=== PATIENT | female | born 1930 | race Two or more races ===

== ENCOUNTER 2019-02-11 19:37 | Inpatient (IN) | payer MEDICARE, MEDICAID ==
[~2019-02-11] VITALS: Ht 154.9 cm; Wt 86.2 kg
--- NOTE | 2019-02-11 19:46 | NUR ---
GINA FROM HOME FOR MEDICAL CLEARANCE, PT HAD A GLF AND HAS MINOR L KNEE PAIN. PT ON A HOLD; PT AAOX2, -SOB, NAD NOTED, VSS ,PENDING MD FRANCIS
[2019-02-11 20:01] LABS: BASOPHILS # (AUTO) 0.1 /CMM (0.0-0.2); BASOPHILS % (AUTO) 1.3 % (0.0-2.0); EOSINOPHILS % (AUTO) 1.2 % (0.0-6.0); HEMATOCRIT 45 % (33-45); LYMPHOCYTES # (AUTO) 2.2 /CMM (0.8-4.8); LYMPHOCYTES % (AUTO) 28.9 % (20.0-44.0); MEAN CORPUSCULAR HGB CONC 34 g/dl (31.0-36.0); MEAN CORPUSCULAR VOLUME 89 fL (82-100); MONOCYTES # (AUTO) 0.8 /CMM (0.1-1.30); MONOCYTES % (AUTO) 10.5 % (2.0-12.0); NEUTROPHILS # (AUTO) 4.4 /CMM (1.8-8.9); NEUTROPHILS % (AUTO) 58.1 % (43.0-81.0); PLATELET COUNT (AUTO) 150 /CMM (150-450); WHITE BLOOD COUNT (AUTO) 7.6 K/uL (4.3-11.0)
[2019-02-11 20:12] LABS: ALANINE AMINOTRANSFERASE 22 U/L (12-78); ALBUMIN 3.8 g/dL (3.4-5.0); ALCOHOL, BLOOD < 3 mg/dL (0-0); ALKALINE PHOSPHATASE 142 U/L (46-116); ASPARTATE AMINOTRANSFERASE 23 U/L (15-37); BILIRUBIN,DIRECT 0.2 mg/dL (0.0-0.2); BILIRUBIN,TOTAL 0.7 mg/dL (0.2-1.0); CALCIUM, SERUM 9.5 mg/dL (8.5-10.1); CARBON DIOXIDE 28 mmol/L (21-32); CHLORIDE 104 mmol/L (98-107); CREATININE 0.6 mg/dL (0.6-1.3); GLUCOSE 86 mg/dL (74-106); POTASSIUM 3.3 mmol/L (3.5-5.1); SODIUM SERUM 140 mmol/L (136-145); TOTAL PROTEIN, SERUM 7.1 g/dL (6.4-8.2); UREA NITROGEN, BLOOD 19 mg/dL (7-18)
[2019-02-11 20:24] LABS: ACETAMINOPHEN 0 ug/ml (10-30)
--- NOTE | 2019-02-11 21:51 | NUR ---
PT [facility]SP[facility], REPORT GIVEN TO STONEY CANCINO FOR CHANG
[2019-02-11] MEDS ORDERED: TEMAZEPAM 7.5 MG CAPSULE PO PRN (22:00)
[2019-02-11] MEDS ORDERED: MAG HYDROX/AL HYDROX/SIMETH 30 ML UDC PO PRN (22:00)
[2019-02-11] MEDS ORDERED: MAGNESIUM HYDROXIDE 30 ML UDC PO PRN (22:00)
[2019-02-11] MEDS ORDERED: BLOOD SUGAR DIAGNOSTIC 1 EACH STRIP IN ONE (22:00)
[2019-02-11] MEDS ORDERED: ACETAMINOPHEN 325 MG TABLET PO PRN (22:00)
[2019-02-11] MEDS ORDERED: LORAZEPAM 0.5 MG TABLET PO PRN (22:00)
[2019-02-11] MEDS ORDERED: DORZ10DR11 LEFTEYE (22:23)
[2019-02-11] MEDS ORDERED: LEVO100T9 PO (22:23)
[2019-02-11] MEDS ORDERED: ATOR20TA (22:23)
[2019-02-11] MEDS ORDERED: AMLO2.5T4 (22:23)
[2019-02-11] MEDS ORDERED: OMEP20CA11 PO (22:23)
[2019-02-11] MEDS ORDERED: METO-357 PO (22:23)
[2019-02-11] MEDS ORDERED: IPRA42SP BNOSTRILS (22:23)
[2019-02-11 23:19] VITALS: BP 129/80
--- NOTE | 2019-02-12 00:21 | NUR ---
ADMISSION NOTES: ADMITTED THIS 88Y/O FEMALE PATIENT ADMIT FROM H ER/ INTALLIY FROM HOME , PT ADMITTED TO [facility] ON [address] GRAVELY DISABLE , DANGER TO SELF PER HOLD VERBALLY ABUSIVE AND FOUND LIVING IN A TRASH FILLED, BUGS, INSCETS ARE VISIBLE IN HER HOME WELL FECES AROUND HER HOME, UNABLE TO CARE HER SELF ,UPON FACE TO FACE ASSESSMENT PATIENT IS A&O X ,2 DISORGNIZED, LOUD HYPERVERABLLY , AGGRESSIVE, DISORGNIZED, ANXIOUS, FLAT AFFECT, PARNOID, DISHELVED ,EASILY GETS AGITATED,, PT. IS POOR HISTORIAN, POOR INSIGHT ,POOR JUDGEMENT , PT. REFUSED TO TAKE SHOWER AT THIS TIME , PT. REFUSED TO SIGNS ADMISSION CONSENT PAPERS , DUE TO MENTAL STATUS , PT. REFUSED TO CHECK INTIALLY BLOOD SUGAR, PER PT. I AM NOT DIABETIC, I DONT WANTS CHECK AT THIS TIME , ENCOURAGED, EXPLAINED RISKS AND BENEFITS STILL REFUSED , AWARE AND NOTIFIED OF THE ADMISSION, BELONGINGS CONTRABAND WERE DONE , NURSING ASSESSMENT DONE ,PT. RIGHTS DISCUSS BY JOB TRACER , PROVIDE THE PT. WITH HANDBOOK, AND MEDICATIONS GUIDE, ENVIRONMENTAL SAFETY CHECK DONE, ENCOURAGED PT. VERBALIZED ANY FEELING CONCERN TO STAFF, ORIENT TO UNIT POLICY, NO ACUTE DISTRESS NOTED,VITAL SIGNS WNL ,DENIES ANY PAIN AT THIS TIME ,WILL CONTINUE TO MONITOR FOR Q15 SAFETY AND BEHAVIOR.
[2019-02-12 07:34] LABS: CREATININE 0.5 mg/dL (0.6-1.3)
[2019-02-12 07:35] LABS: CHOLESTEROL 178 mg/dL (<200); HDL CHOLESTEROL 60 mg/dL (40-60); LDL 95 mg/dL (0-99); TRIGLYCERIDES 115 mg/dL (30-150)
[2019-02-12 08:00] VITALS: BP 139/74
[2019-02-12] MEDS ORDERED: BIMA2.5D5 LEFTEYE (08:58)
--- NOTE | 2019-02-12 11:11 | NUR ---
SANA received a call from Karen, Dock Pumper [phone] with [facility] who reported to SANA that pt is currently facing eviction due to pt violating her lease and not being able to maintain her property up to lease agreement. Per Karen, pt is very inappropriate and has been banned from local community areas due to her aggressive verbal behavior and stated that pts mental state has affected pts ability to care for herself and her apartment. Karen stated that pt is unable to return to the apartment [address] [facility] [address] and that she needs SNF placement. Karen stated that pt has a 30 day eviction notice and also stated that pt does not have a responsible constitution party and that pt does not have any family involved in her life.
--- NOTE | 2019-02-12 12:40 | NUR ---
SW received an email from Karen, Retail Advertising Executive [phone] with [facility] with scanned letters addressed to pt stating she was being evicted with attached photos of pts apartment and also a formal letter addressed to SW that states pt is unable to return back to her apartment. Letters can be found in pts chart.
[2019-02-12] MEDS ORDERED: CARBOXYMETHYLCELLULOSE SODIUM 0.4 ML DROPERETTE EACHEYE PRN (14:00)
[2019-02-12] MEDS ORDERED: IPRATROPIUM BROMIDE 0.06% 15 ML NASPR NS PRN (14:00)
[2019-02-12] MEDS: METOPROLOL SUCCINATE 50 MG TAB.SR.24H PO SCH (15:01)
--- NOTE | 2019-02-12 15:59 | NUR ---
INITIAL DISCHARGE PLAN: Per Karen, Smoking Pipe Mounter [phone] with [facility], pt is unable to return to her apartment [address] [address] due to pt violating her lease agreement and due to her aggressive inappropriate behavior and is now in the process of eviction. Pt will need SNF placement. SW will help form a safe and proper discharge in collaboration with .
[2019-02-12 16:00] VITALS: BP 137/71
[2019-02-12 20:14] VITALS: BP 119/59
[2019-02-12] MEDS ORDERED: TIMOLOL 0.5% SOLN OPHTH 5 ML BOTTLE LEFTEYE SCH (21:00)
[2019-02-12] MEDS ORDERED: DORZOLAMIDE OPTH 2% 10 ML BOTTLE LEFTEYE SCH (21:00)
[2019-02-12] MEDS: LATANOPROST EYE DROP 0.005% 2.5 ML BOTTLE LEFTEYE SCH (21:14)
[2019-02-12] MEDS: QUETIAPINE FUMARATE 25 MG TABLET PO SCH (22:00)
--- NOTE | 2019-02-12 22:40 | NUR ---
[facility]PS RN NOTE: PATIENT REQUESTED DIFFERENT SCHEDULE OF HER DORZOLAMIDE AND TIMOLOL EYE DROPS, NOTIFIED ЕЛЕНА NAVARRO WITH ORDER NOTED AND CARRIED OUT. WILL CONTINUE TO MONITOR Q15 MINS FOR SAFETY
--- NOTE | 2019-02-12 23:00 | NUR ---
[facility]PS RN NOTE: PATIENT REFUSED SEROQUEL, EXPLAINED THE RISK AND BENEFITS X 3 ATTEMPTS BUT PATIENT REFUSED. PATIENT STATED THAT SHE IS NOT PSYCHOTIC, SHE IS NOT DEPRESSED AND SHE DOES NOT WANT TO TAKE IT. WILL CONTINUE TO MONITOR Q15 MINS FOR SAFETY Addendum: 02/13/19 at 0621 by ELEONORA MOORE II, RN ADDENDUM: NOTIFIED DR. VALDES OF THE REFUSAL OF MEDICATION
[2019-02-13 08:00] VITALS: BP 152/62
[2019-02-13] MEDS: METOPROLOL SUCCINATE 50 MG TAB.SR.24H PO SCH ×2 (09:00→09:55)
[2019-02-13] MEDS ORDERED: DORZOLAMIDE OPTH 2% 10 ML BOTTLE LEFTEYE SCH ×2 (09:00→13:00)
[2019-02-13] MEDS ORDERED: TIMOLOL 0.5% SOLN OPHTH 5 ML BOTTLE LEFTEYE SCH ×2 (09:00→13:00)
[2019-02-13] MEDS: PANTOPRAZOLE 40 MG TABLET.DR PO SCH (09:55)
[2019-02-13] MEDS: LEVOTHYROXINE SODIUM 100 MCG TABLET PO SCH (09:55)
[2019-02-13] MEDS: DORZOLAMIDE TIMOLOL LEFTEYE SCH ×2 (10:09→18:00)
[2019-02-13 16:00] VITALS: BP 141/79
--- NOTE | 2019-02-13 18:32 | NUR ---
held am glucophage as pt. ate very late and states she only ate 50%.camelia. glucophage given.
[2019-02-13 20:24] VITALS: BP 142/67
[2019-02-13 20:30] VITALS: BP 142/67
[2019-02-13] MEDS: LATANOPROST EYE DROP 0.005% 2.5 ML BOTTLE LEFTEYE SCH (21:59)
[2019-02-13] MEDS: QUETIAPINE FUMARATE 25 MG TABLET PO SCH (22:00)
[2019-02-14 08:00] VITALS: BP 148/75
[2019-02-14] MEDS: PANTOPRAZOLE 40 MG TABLET.DR PO SCH (09:16)
[2019-02-14] MEDS: LEVOTHYROXINE SODIUM 100 MCG TABLET PO SCH (09:16)
[2019-02-14] MEDS: METOPROLOL SUCCINATE 50 MG TAB.SR.24H PO SCH (09:17)
[2019-02-14] MEDS: DORZOLAMIDE TIMOLOL LEFTEYE SCH ×2 (09:20→16:35)
--- NOTE | 2019-02-14 10:39 | NUR ---
WOUND CARE CONSULT: PT PRESENTS WITH INTACT SKIN. RECOMMENDATIONS MADE FOR SKIN PROTECTION. DISCUSSED WITH NURSING STAFF. WILL SEE PRN. CURRENT SOFI SCORE IS 17. Addendum: 02/14/19 at 1041 by LORETO GOODWIN WNDNU PT REFUSED Z GUARD FOR PROTECTION OF SKIN FOLDS. SKIN IS CLEAN AND DRY AT THIS TIME. PT IS CONTINENT AND INDEPENDENT WITH BED MOBILITY.
[2019-02-14 15:51] LABS: APPEARANCE,URINE Clear (CLEAR); BILIRUBIN,URINE Negative (NEGATIVE); BLOOD, URINE Negative Ery/uL (NEGATIVE); COLOR,URINE Yellow (YELLOW); KETONES,URINE Negative (NEGATIVE); LEUKOCYTE ESTERASE ,URINE Negative (NEGATIVE); NITRITE, URINE Negative (NEGATIVE); PH,URINE 7.5 (5.0-8.0); PROTEIN,URINE Negative (NEGATIVE); UGLUCOSE Negative (NEGATIVE); UROBILINOGEN,URINE 0.2 EU/dL (0.2)
[2019-02-14 16:00] VITALS: BP 152/72
[2019-02-14 20:53] VITALS: BP 157/92
[2019-02-14] MEDS: LATANOPROST EYE DROP 0.005% 2.5 ML BOTTLE LEFTEYE SCH (21:51)
[2019-02-14] MEDS: QUETIAPINE FUMARATE 25 MG TABLET PO SCH (21:51)
--- NOTE | 2019-02-14 22:00 | NUR ---
GPS/INFORMATION TECHNOLOGY ASSOCIATE NOTES: PT. REFUSED HS QUETIAPINE 12.5MG PO ORDERED. OFFERED 3X. EXPLAINED RISK AND BENEFITS. PT. STILL REFUSED.
--- NOTE | 2019-02-15 07:30 | NUR ---
INITIAL PT RESTING QUIETLY RESPIRATION EVEN NO DISTRESS NOTED WILL CONTINUE TO MONITOR
[2019-02-15 08:00] VITALS: BP 148/82
[2019-02-15] MEDS: PANTOPRAZOLE 40 MG TABLET.DR PO SCH ×5 (09:20→12:22)
[2019-02-15] MEDS: LEVOTHYROXINE SODIUM 100 MCG TABLET PO SCH (09:20)
[2019-02-15] MEDS: METOPROLOL SUCCINATE 50 MG TAB.SR.24H PO SCH (09:21)
[2019-02-15] MEDS: DORZOLAMIDE TIMOLOL LEFTEYE SCH ×2 (09:27→16:45)
--- NOTE | 2019-02-15 15:17 | NUR ---
GROUP NOTE: SW prompted pt to attend group on 02/15/19 at 2:30pm discussing goal setting for while they are in the hospital and after discharge, but pt was sleeping and not easily aroused.
[2019-02-15 16:00] VITALS: BP 150/67
[2019-02-15 20:54] VITALS: BP 148/80
[2019-02-15] MEDS: QUETIAPINE FUMARATE 25 MG TABLET PO SCH ×2 (21:36→21:47)
[2019-02-15] MEDS: LATANOPROST EYE DROP 0.005% 2.5 ML BOTTLE LEFTEYE SCH (21:45)
--- NOTE | 2019-02-16 01:30 | NUR ---
MS/RN NOTES patient in bed, no acute distress noted. Incontinent care done. Patient noted with Bilateral inguinal redness. Patient refused photo Applied Zguard to inguinal area. All needs attended. Will endorse accordingly.
[2019-02-16 08:00] VITALS: BP 127/64
[2019-02-16] MEDS: DORZOLAMIDE TIMOLOL LEFTEYE SCH ×2 (08:46→16:50)
[2019-02-16] MEDS: LEVOTHYROXINE SODIUM 100 MCG TABLET PO SCH (08:46)
[2019-02-16] MEDS: METOPROLOL SUCCINATE 50 MG TAB.SR.24H PO SCH (08:48)
[2019-02-16] MEDS: PANTOPRAZOLE 40 MG TABLET.DR PO SCH (08:53)
--- NOTE | 2019-02-16 09:00 | NUR ---
refused am protonix.
--- NOTE | 2019-02-16 12:27 | NUR ---
no change in status.
[2019-02-16 16:00] VITALS: BP 123/66
[2019-02-16 21:04] VITALS: BP 135/57
[2019-02-16] MEDS: QUETIAPINE FUMARATE 25 MG TABLET PO SCH ×3 (21:37→23:05)
[2019-02-16] MEDS: LATANOPROST EYE DROP 0.005% 2.5 ML BOTTLE LEFTEYE SCH (21:38)
[2019-02-16 23:00] VITALS: BP 128/68
--- NOTE | 2019-02-16 23:10 | NUR ---
GPS RN NOTES: AT 2136 OFFERED SEROQUEL 12.5 MG PO MEDS , PT. STATES I WILL TAKE LATER , THEN OFFERED AT 2232 , PT. REFUSED TO TAKEING SEROQUEL PER PT. I AM FINE, I NO NEEDED TO TAKE ANY PSYCH MEDS, ENCOURAGED X3 EXPLAINED RISKS AND BENEFITS , STILL REFUSED, MEDS RETURN TO [facility].
[2019-02-17] MEDS: PANTOPRAZOLE 40 MG TABLET.DR PO SCH (07:31)
[2019-02-17] MEDS: LEVOTHYROXINE SODIUM 100 MCG TABLET PO SCH (07:32)
[2019-02-17 08:00] VITALS: BP 143/65
[2019-02-17] MEDS: METOPROLOL SUCCINATE 50 MG TAB.SR.24H PO SCH (08:41)
[2019-02-17] MEDS: DORZOLAMIDE TIMOLOL LEFTEYE SCH ×2 (08:42→17:06)
[2019-02-17 16:05] VITALS: BP 135/67
[2019-02-17 19:55] VITALS: BP 143/65
[2019-02-17] MEDS: LATANOPROST EYE DROP 0.005% 2.5 ML BOTTLE LEFTEYE SCH (21:40)
--- NOTE | 2019-02-17 21:42 | NUR ---
GPS RN NOTES: PT. REFUSED TO TAKEING SEROQUEL 12.5 MG PO PER PT. I DON'T WANTS TAKING ANY PSYCH MEDS, ENCOURAGED X3 EXPLAINED RISKS AND BENEFITS , STILL REFUSED, MEDS RETURN TO [facility].
[2019-02-17] MEDS ORDERED: QUETIAPINE FUMARATE 25 MG TABLET PO SCH (22:00)
--- NOTE | 2019-02-18 04:20 | NUR ---
RN NOTES : OFFERED SLEEPING PILLS, BUT PT. REFUSED TO TAKING SLEEPING MEDS, PER PT. I DONT WANT TAKING ANY MEDS.
--- NOTE | 2019-02-18 06:30 | NUR ---
RN NOTES; PT. REUSED WEEKLY FULL BODY SKIN ASSESSMENT AND PICTURES , ENCOURGED X3 STILL REFUSED. PER PT. MY SKIN IS FINE .I MDONOT WANTS ANY ASSESSMENT AND PICTURES.
[2019-02-18 08:00] VITALS: BP 151/69
[2019-02-18] MEDS: LEVOTHYROXINE SODIUM 100 MCG TABLET PO SCH (08:35)
[2019-02-18] MEDS: PANTOPRAZOLE 40 MG TABLET.DR PO SCH (08:37)
[2019-02-18] MEDS: DORZOLAMIDE TIMOLOL LEFTEYE SCH ×2 (08:37→16:09)
--- NOTE | 2019-02-18 08:38 | NUR ---
SANA FAXED SNF REFERRAL to [facility] Address: [address] [place] [address] and [facility] ([facility] [address] [place], [address] for review.
[2019-02-18] MEDS: METOPROLOL SUCCINATE 50 MG TAB.SR.24H PO SCH (08:39)
--- NOTE | 2019-02-18 09:54 | NUR ---
SW received a call from LACEY, corporate fitness program coordinator at [facility] ([facility]) [address] [place], [address] stating pt has been accepted to the facility.
--- NOTE | 2019-02-18 15:46 | NUR ---
GROUP NOTE: SW encouraged pt to participate in group on this present day discussing "discharge planning." Pt refused to attend and stated he wanted to stay in bed and that she did not needs anything this hospital had to offer. Pt was verbally aggressive and not able to engage in conversation due to her labile mood.
[2019-02-18 16:00] VITALS: BP 121/65
[2019-02-18 20:35] VITALS: BP 164/70
[2019-02-18] MEDS: LATANOPROST EYE DROP 0.005% 2.5 ML BOTTLE LEFTEYE SCH (21:06)
[2019-02-19] MEDS: PANTOPRAZOLE 40 MG TABLET.DR PO SCH (07:30)
[2019-02-19 08:00] VITALS: BP 120/54
--- NOTE | 2019-02-19 08:32 | NUR ---
SW contacted pts jed Flowers [phone] and pts sister Allison [phone] to inform them pt is discharging on this present day to [facility] ([facility] [address] [place], [address] due to pt not being able to return to her apartment as she is being evicted. Sister understood and agreed with discharge plan.
--- NOTE | 2019-02-19 08:35 | NUR ---
SANA contacted Karen, Station Engineer Main Line [phone] with [facility] and informed her pt is being discharged on this present day to [facility] ([facility]) [address] [place], [address] .
[2019-02-19 08:54] VITALS: BP 120/54
[2019-02-19] MEDS: LEVOTHYROXINE SODIUM 100 MCG TABLET PO SCH (08:54)
[2019-02-19] MEDS: METOPROLOL SUCCINATE 50 MG TAB.SR.24H PO SCH (08:54)
--- NOTE | 2019-02-19 09:12 | NUR ---
DISCHARGE NOTE: Pt discharging at 1:00pm via [facility] to [facility] ([facility]) [address] [place], [address] . Pts niece Kristie [phone] and pts sister Allison [phone] have been notified. Pts mood is anxious with congruent affect as she wants to be discharged home, SW explained that she couldn't as she is currently being evicted. SW informed pt that once she goes to the facility she can arrange to get her belonging from her apartment with her niece. Pt agreed to discharge to SNF. Pt will be under the care of Agency Sales Management Assistant: Dr Chen Address: [address] [place] [address] Kim Address: [address] [place] [address] . The multidisciplinary exit care form was done, printed, signed, and given to the patient.
[2019-02-19] MEDS: DORZOLAMIDE TIMOLOL LEFTEYE SCH (09:15)
--- NOTE | 2019-02-19 10:30 | NUR ---
gps assistant case manager: notes pt refused all d'c skin photos and assessment, stated, "they just took them yesterday." pt easily irritated and can be verbally abusive at times m/b cursing at staff.
--- NOTE | 2019-02-19 11:15 | NUR ---
gps manager credit: notes report given to kya maldonado) from [facility] for continuity of care.
--- NOTE | 2019-02-19 11:45 | NUR ---
gps promotional advertising assistant: notes received order for discharge to snf. order acknowledged. pt aware.
--- NOTE | 2019-02-19 13:45 | NUR ---
gps gaming cage worker: notes ambulanz here and report given to one of the crew. all valuables given back to pt. all d'c papers copy given to ambulance crew. pt stable for discharge. denies si/hi and denies auditory/visual hallucination at time discharge. needs attended.
--- NOTE | 2019-02-19 14:15 | NUR ---
gps director financial services: discharged discharged to snf via ambulance in stable condition with all valuables/belongings.
== END 2019-02-19 14:15 | DRG 885 ==
LOC: ER 19:38 → GPS 20:18
PROVIDERS: ADMIT Psychiatry & Neurology Psychiatry; ATTEND Nurse Practitioner Acute Care
DX: F39 Unspecified mood [affective] disorder (principal); F29 Unspecified psychosis not due to a substance or known physiological condition; F41.9 Anxiety disorder, unspecified; Z73.6 Limitation of activities due to disability; K21.9 Gastro-esophageal reflux disease without esophagitis; E03.9 Hypothyroidism, unspecified; E87.6 Hypokalemia; H40.9 Unspecified glaucoma; H11.009 Unspecified pterygium of unspecified eye; I10 Essential (primary) hypertension; E66.9 Obesity, unspecified; Z68.35 Body mass index [BMI] 35.0-35.9, adult; Z91.19 Patient's noncompliance with other medical treatment and regimen
CPT/HCPCS: 36415; 80048-TC; 80061-TC; 80076-TC; 81000-TC; 82565-TC; 85025-TC; 87081-TC; 97116-TC; 97530-TC; G0480